=== PATIENT | male | born 1950 | race Caucasian/White ===

== ENCOUNTER 2018-05-03 06:54 | Emergency (ER) | payer MEDICARE ==
[~2018-05-03] VITALS: Ht 170.2 cm; Wt 72.7 kg
[2018-05-03] MEDS ORDERED: SYNTHROID112 MCG PO (07:04)
[2018-05-03] MEDS ORDERED: BACTRIM DS1 TAB PO (07:16)
[2018-05-03] MEDS ORDERED: LORTAB 1010 MG PO (07:16)
[2018-05-03 07:18] VITALS: BP 129/79
== END 2018-05-03 07:38 | disposition home or self-care (01) ==
LOC: ED 06:54
DX: S91.332A Puncture wound without foreign body, left foot, initial encounter (principal); E07.9 Disorder of thyroid, unspecified; W22.8XXA Striking against or struck by other objects, initial encounter; Y93.H3 Activity, building and construction; Y92.009 Unspecified place in unspecified non-institutional (private) residence as the place of occurrence of the external cause